=== PATIENT | male | born 1995 | race African-American/Black ===

== ENCOUNTER → 2018-09-23 12:26 | Outpatient (CLI) | payer OTHER, SELFPAY ==
[2018-09-17 15:51] VITALS: BMI 20.9
[2018-09-22 15:41] LABS: Basophil% 0.4 % (0-1); Eosinophils% 0.6 % (0-5); Hematocrit 45.9 % (40-54); Hemoglobin 15.2 g/dL (13.0-16.5); Lymphocyte % 50.8 % (19-41); Mean Corp Hgb Conc 33.1 g/dL (32-36); Mean Corpuscular Hgb 28.5 pg (27.0-32.0); Mean Corpuscular Volume 86.1 fL (80-94); Monocyte% 6.2 % (0-10); Neutrophil % 41.8 % (47-70); Platelet Count 194 K/mm3 (150-450); RBC Distribution Width CV 12.7 % (11.6-14.6); RBC Distribution Width SD 39.5 fl (35.1-43.9); Red Blood Count 5.33 M/mm3 (4.6-6.2); White Blood Count 4.7 K/mm3 (4.4-11.0)
[2018-09-22 15:42] LABS: Absolute Lymphocyte Count 2.36 X10^3/uL (0.83-4.51); Absolute Neutrophil Count 1.9 X10^3/uL (2.0-7.7); Anion Gap 8 (5-15); BUN 13 mg/dL (7-18); BUN/Creat Ratio 10.6 RATIO (10-20); Calcium,Total 9.1 mg/dL (8.5-10.1); Chloride 105 mmol/L (98-107); Creatinine, Serum 1.23 mg/dL (0.70-1.30); EST Glomerular Filtration Rate 79 mL/min (>60); Est Glom Filt Rate - Afr Amer 96 mL/min (>60); Glucose 85 mg/dL (74-106); NRBC Flagged by Analyzer 0 % (0-5); Sodium Level 141 mmol/L (136-145); Thyroid Stim Hormone (TSH) 1.41 uIU/mL (0.358-3.74)
--- NOTE | 2018-09-23 12:30 | ECHOD_ITS ---
Reason For Study: ARRHYTHMIA Procedure This was a 2D Doppler, Color Flow transthoracic echocardiogram. Exam performed in department. Left Ventricle Normal LV size. Left ventricular systolic function is normal. The estimated ejection fraction is 60 %. Normal diastology for age. No regional wall motion abnormalities noted. Right Ventricle Normal RV size. Normal systolic function. Atria Normal left atrium. Normal right atrium. Mitral Valve Normal mitral valve. Tricuspid Valve Normal tricuspid valve. Mild tricuspid valve insufficiency. Pulmonary artery systolic pressure is 23 mmHg. Aortic Valve Normal aortic valve. Trisinus/trileaflet aortic valve. Pulmonic Valve Normal pulmonic valve. Great Vessels Normal aortic root. The pulmonary artery is normal size. Normal inferior vena cava. Pericardium/Pleural No pericardial effusion. MMode/2D Measurements & Calculations LVIDd: 4.7 cm IVSd: 0.93 cm Ao root diam: 2.8 cm LVIDs: 3.2 cm LVPWd: 0.87 cm RVDd: 3.5 cm FS: 32.4 % LAV(MOD-bp): 52.7 ml LA A4 area: 18.3 cm2 LA dimension(2D): 3.1 cm LAV(MOD-bp) Indexed: 28.0 ml/m2 LAV(MOD-sp2): 50.2 ml LAV(MOD-sp4): 50.7 ml RA A4 area: 14.6 cm2 Time Measurements MV dec time: 0.21 sec Doppler Measurements & Calculations MV E max luís: 80.1 cm/sec Lat Peak E' Luís: 22.5 cm/sec Med Peak E' Luís: 10.9 cm/sec MV A max luís: 21.6 cm/sec E/E' lat: 3.6 E/E' med: 7.4 MV E/A: 3.7 Ao V2 max: 114.1 cm/sec LV V1 max: 90.3 cm/sec PA V2 max: 110.6 cm/sec Ao max P.2 mmHg LV V1 max P.3 mmHg PI dec slope: 41.1 cm/sec2 TR max luís: 213.3 cm/sec TR max P.2 mmHg Interpretation Summary Normal LV size. Left ventricular systolic function is normal. The estimated ejection fraction is 60 %. Mild tricuspid valve insufficiency. Normal diastology for age. Ordering Physician: Louis Jones Referring Physician: JOSUÉ PCP Performed By: Cristal Brennan RDCS, RVT
== END ==
PROVIDERS: Referring Provider Internal Medicine Cardiovascular Disease; Visit Provider Internal Medicine Cardiovascular Disease
DX: R00.2 Palpitations (principal)
CPT/HCPCS: 36415; 80048; 84443; 85025; 93306

== ENCOUNTER 2019-01-16 23:57 | Emergency (ER) | payer OTHER, SELFPAY ==
[2018-09-17 15:51] VITALS: BMI 20.9
[2019-01-16 23:58] VITALS: BP 127/49; PULSE 72; RESP 16; TEMP 36.9; O2SAT 100; BMI 23.3
--- NOTE | 2019-01-17 00:55 | ED.DCSUM_ITS ---
History of Present Illness Chief Complaint: Abd Pain Informant: Patient, Family Onset: Today Context: Gradual Onset - while riding in car Timing: Continuous Quality: sore Location: LUQ Current Severity: Mild Maximum Severity: Mild Worsened by: nothing Relieved by: nothing Associated Symptoms: see below Narrative: Patient has been ill for about 3 or 4 weeks with mono. He goes to school in [place], [place] and was seen there multiple times by multiple practitioners for this illness. Initially, he had a severe sore throat and it appeared he may have strep so he was swabbed and it was positive so he was placed on penicillin but he got no better. He did not develop a rash. Eventually, he had a positive Monospot and advised that he had mononucleosis. He had fevers. They resolved and he has been gradually feeling better. He now was brought home by his parents from college out of concern that he was not getting better. For the last for 5 days he has felt basically back to normal and wanting to go back to school. Today he developed a subjective low-grade fever, he felt dizzy when he stood up and describes it as both lightheadedness and spinning, but had no other associated symptoms with it such as nausea, hearing disturbance/tinnitus, earache, ear discharge, headache. He was not near syncopal or syncopal. He also developed left upper abdominal discomfort gradually while riding in a car a significant distance. He had hiccups recently and some mild soreness that was attributed to probable splenic swelling and he was advised to avoid any injuries or sports recently which he has done and he has had no injuries or falls. He denies any vomiting or diarrhea or other new symptoms. Past Medical History - Allergies and Home Meds Allergies/Adverse Reactions: Allergies pseudoephedrine [From Actifed] Allergy (Verified 01/17/19 00:02) hives triprolidine [From Actifed] Allergy (Verified 01/17/19 00:02) hives SUDFED Allergy (Mild, Uncoded 01/17/19 00:02) Hives Primary Care Physician: Doctor,Your [STAFF PHYSICIAN] - 1 Week if not improving Past Medical History: None Surgical History: no surgical history Lives: Roommate Smoking Status: Never smoker Drugs: None Review of Systems General: Reports: Fever, Subjective. Denies: Chills, Sweats Eyes: Denies: Visual changes - bilaterally, Diplopia ENT: Denies: Rhinorrhea, Sore throat Cardiovascular: Denies: Chest pain, Palpitations Respiratory: Denies: Dyspnea, Cough, Dyspnea on exertion Gastrointestinal: Reports: Abdominal pain. Denies: Nausea, Vomiting, Diarrhea, Melena, Hematochezia Genitourinary: Denies: Dysuria, Hematuria, Frequency Musculoskeletal: Denies: Neck pain, Back pain, Extremity Pain Skin: Denies: Rash, Wounds Neurological: Denies: Headache, Weakness, Numbness Physical Exam Vital Signs/Narrative: Vital Signs Temp Pulse Resp BP Pulse Ox 01/16/19 23:58 98.5 F 72 16 127/49 H 100 Inital Vital Signs reviewed: Yes General: Well nourished, Well developed, No Acute Distress Head: Normocephalic, Atraumatic Eyes: Perrl, EOMI ENT: Moist mucous membranes, No rhinorrhea, TM's clear, - - PO clear Neck: Supple, - - posterior cervical LAD only. Cardiovascular: Regular rate, Regular rhythm, No murmurs Respiratory: No distress, CTA bilaterally, Chest nontender Abdomen: Soft, Nondistended, Normal bowel sounds, No masses, Tender - mild LUQ. Negative for: Hepatomegaly, Splenomegaly Back: Nontender, Normal Inspection. Negative for: CVA tenderness Extremities: Nontender, No edema. Negative for: Calf Tenderness Skin: Normal color, No rash, No Trauma Neurological: Alert, Oriented x3, Cranial nerves II-XII grossly intact, Normal Strength, Normal Sensation, Normal Gait Psychological: Normal affect, Normal Mood Diagnostic/Tx/Re-eval - Medical Decision Making I suspect he is having abdominal discomfort due to splenic swelling related to mononucleosis. He has suffered no falls, injuries, abrupt severe symptoms to suggest splenic capsular rupture/hematoma. I do not think he needs acute imaging right now. I think his symptoms are all related to his mononucleosis, which can persist for a couple months very easily. His exam is otherwise normal and he is very well-appearing at this time with fairly normal vital signs. We discussed reasons to return and routine follow-up, and to avoid injuries especially to this area to avoid splenic rupture which he is at risk for if injured. He and family are comfortable with this plan, discussed at length. Supportive care advised at this time. ED Disposition - Plan for ED Patient: Disposition: Home or Assisted Living Diagnosis: LUQ abdominal pain, Mononucleosis, Lightheadedness Instructions: Mononucleosis Referrals: Doctor,Your [STAFF PHYSICIAN] - 1 Week if not improving
== END 2019-01-17 01:09 | disposition home or self-care (01) ==
PROVIDERS: Emergency Provider Emergency Medicine; Family Provider Family Medicine; PCP Family Medicine
DX: R10.12 Left upper quadrant pain (principal); B27.90 Infectious mononucleosis, unspecified without complication; R42 Dizziness and giddiness
CPT/HCPCS: 99282

== ENCOUNTER → 2023-07-31 | Outpatient (CLI) | payer OTHER, SELFPAY ==
[2023-07-31 17:41] LABS: Absolute Lymphocyte Count 2.07 X10^3/uL (0.83-4.51); Basophil# 0.01 X10^3/uL; Basophil% 0.2 % (0-1); Eosinophil# 0.04 X10^3/uL; Eosinophils% 0.9 % (0-5); Hematocrit 43.6 % (40-54); Hemoglobin 14.6 g/dL (13.0-16.5); Lymphocyte # 2.07 X10^3/ul (0.83-4.51); Lymphocyte % 46.4 % (19-41); Mean Corp Hgb Conc 33.5 g/dL (32-36); Mean Corpuscular Hgb 28.3 pg (27.0-32.0); Mean Corpuscular Volume 84.5 fL (80-94); Mean Platelet Vol. 9.8 fl (6.2-12.0); Monocyte% 6.7 % (0-10); NRBC Flagged by Analyzer 0 % (0-5); Neutrophil # 2.04 X10^3/uL (2.7-7.7); Neutrophil % 45.8 % (47-70); Platelet Count 221 K/mm3 (150-450); RBC Distribution Width CV 12.2 % (11.6-14.6); RBC Distribution Width SD 37.4 fl (35.1-43.9); Red Blood Count 5.16 M/mm3 (4.6-6.2); White Blood Count 4.5 K/mm3 (4.4-11.0)
[2023-07-31 18:13] LABS: ALB/GLOB Ratio 1.1 RATIO (0.9-2.4); AST(SGOT) 16 U/L (15-37); Alanine Aminotransfer ALT/SGPT 20 U/L (16-61); Albumin, Serum 4.2 g/dL (3.2-5.0); Alkaline Phosphatase 66 U/L (45-117); Anion Gap 6 (5-15); BUN 16 mg/dL (7-18); BUN/Creat Ratio 13.6 RATIO (10-20); Calcium,Total 9.2 mg/dL (8.5-10.1); Chloride 107 mmol/L (98-107); Cholesterol 177 mg/dL (200); Creatinine, Serum 1.18 mg/dL (0.70-1.30); EST Glomerular Filtration Rate 79 mL/min (>60); Est Glom Filt Rate - Afr Amer 96 mL/min (>60); Globulin 3.7 g/dL (2.2-4.2); Glucose 93 mg/dL (74-106); High Density Lipoprotein 57 mg/dL; Potassium 3.7 mmol/L (3.5-5.1); Protein, Total 7.9 g/dL (6.4-8.2); Sodium Level 138 mmol/L (136-145); Triglycerides 53 mg/dL; Very Low Density Lipoprotein 11 mg/dL (5-40)
== END | disposition home or self-care (01) ==
PROVIDERS: PCP Nurse Practitioner Family; Referring Provider Nurse Practitioner Family; Visit Provider Nurse Practitioner Family
DX: Z00.01 Encounter for general adult medical examination with abnormal findings (principal)
CPT/HCPCS: 36415; 80053; 80061; 85025

== ENCOUNTER 2025-02-03 20:17 | Emergency (ER) | payer SELFPAY ==
[2025-02-03 20:19] VITALS: BP 129/81; PULSE 116; RESP 20; TEMP 36.8; O2SAT 100; BMI 26.8
[2025-02-03 20:44] LABS: Hematocrit 45.0 % (40-54); Hemoglobin 15.2 g/dL (13.0-16.5); Immature Granulocytes Count 0.050 X10^3/uL (0.0-0.0); Mean Corp Hgb Conc 33.8 g/dL (32-36); Mean Corpuscular Volume 83.8 fL (80-94); Mean Platelet Vol. 9.7 fl (6.2-12.0); NRBC Flagged by Analyzer 0 % (0-5); POSITIVE DIFFERENTIAL YES; Platelet Count 202 K/mm3 (150-450); RBC Distribution Width CV 12.5 % (11.6-14.6); RBC Distribution Width SD 37.8 fl (35.1-43.9); Red Blood Count 5.37 M/mm3 (4.6-6.2); White Blood Count 9.8 K/mm3 (4.4-11.0)
[2025-02-03 20:46] VITALS: TEMP 37.7
[2025-02-03] MEDS: 0.9% Normal Saline (1000mL) 1,000 ML 999 ML IV (20:59)
[2025-02-03 21:26] VITALS: BP 105/58; BP 121/57; BP 128/63; PULSE 100; PULSE 106; PULSE 115
--- OUTSIDE RECORDS SUMMARY | 2025-02-03 21:37 | XMS RPT_ITS | CCD ---
Author Organization [facility] Inform ion Partnership [facility] Care Team Providers Care Water Registrar Name Role Phone JENNIFER PARKER Unavailable Unavailable Unavailable Primary Care Provider Unavailabl e SELF, SELF Referring Unavailable VERMANASIM Attending Unavailable Scott, Jonna Referring Unavailable Scott, Jonna Attending Unavailable Scott, Jonna Primary Care Unavailable Allergies Allergy Classification Reported Allergen(s) Allergy Type Date of Onset Reaction(s) Facility (2 sources) acetaminophen / HYDROcodone; Translations: [HYDROCODONE-ACETAM INOPHEN] Drug Allergy 05-07-19 14 [facility] Repository (2 sources) lactose; Translations: [LACTOSE] Drug Allergy 11-03-19 12 Nausea Only [facility] Repository (1 source) pseudoephedrine; Translations: [PSEUDOEPHEDRINE HCL] Drug Allergy 07-22-19 06 [facility] Repository (1 source) TRIPROLIDINE-PSEUDO EPHEDRINE; Translations: [TRIPROLIDINE-PSEUD OEPHEDRINE] Propensity to adverse reactions to drug (disorder) 07-22-19 06 [facility] Repository (1 source) Pseudoephedrine Drug Allergy 07-22-19 06 Dyspnea, Nausea and Vomiting, Nausea Only [facility] (1 source) Pseudoephedrine Drug Allergy 01-18-20 19 [facility] Repository (1 source) Triprolidine Drug Allergy 01-18-20 19 [facility] Repository Problems Problem Classification Problem Date Documented Da te Episodic/Chronic Other upper respiratory infections (3 sources) Upper respiratory infection; Translations: [Acute upper respiratory infection, unspecified] Onset: 01-13-2023 01-13-2023 Episodic Unclassified (1 source) Unknown / UNK(Unknown) Onset: 08-16-2017 Results Test Name Value Interpretation Reference Range Facil ity CBC W/Diff, Automatedon 07-19 Absolute Lymph 2.07 X10 3/uL Normal 0.83-4.51 [facility] Comment on above: Performed By: #### L 500.4100, L500.4050, L100.0100 #### [facility] [address] [place], [address] Absolute Neut 2.0 X10 3/uL Normal 2.0-7.7 [facility] Comment on above: Performed By: #### L 500.4100, L500.4050, L100.0100 #### [facility] [address] [place], [address] Basophils/100 WBC (Bld) 0.2 % Normal 0-1 [facility] Comment on above: Performed By: #### L 500.4100, L500.4050, L100.0100 #### [facility] [address] [place], [address] Eosinophils/100 WBC (Bld) 0.9 % Normal 0-5 [facility] Comment on above: Performed By: #### L 500.4100, L500.4050, L100.0100 #### [facility] [address] [place], [address] Erythrocyte distribution width (RBC) [Ratio] 12.2 % Normal 11.6-14.6 [facility] Comment on above: Performed By: #### L 500.4100, L500.4050, L100.0100 #### [facility] [address] [place], [address] Hematocrit (Bld) [Volume fraction] 43.6 % Normal 40-54 [facility] Comment on above: Performed By: #### L 500.4100, L500.4050, L100.0100 #### [facility] [address] [place], [address] Hemoglobin (Bld) [Mass/Vol] 14.6 g/dL Normal 13.0-16.5 [facility] Comment on above: Performed By: #### L 500.4100, L500.4050, L100.0100 #### [facility] [address] [place], [address] IG% 0.000 Normal 0.0-0.9 [facility] Comment on above: Result Comment: IG% - Immature Granulocytes (promyelocytes, myelocytes and metamyelocytes) > 1% indicates that a LEFT SHIFT is Present. Performed By: #### L 500.4100, L500.4050, L100.0100 #### [facility] [address] [place], [address] Lymphocytes/100 WBC (Bld) 46.4 % High 19-41 [facility] Comment on above: Performed By: #### L 500.4100, L500.4050, L100.0100 #### [facility] [address] [place], [address] MCH (RBC) [Entitic mass] 28.3 pg Normal 27.0-32.0 [facility] Comment on above: Performed By: #### L 500.4100, L500.4050, L100.0100 #### [facility] [address] [place], [address] MCHC (RBC) [Mass/Vol] 33.5 g/dL Normal 32-36 [facility] Comment on above: Performed By: #### L 500.4100, L500.4050, L100.0100 #### [facility] [address] [place], [address] MCV (RBC) [Entitic vol] 84.5 fL Normal 80-94 [facility] Comment on above: Performed By: #### L 500.4100, L500.4050, L100.0100 #### [facility] [address] [place], [address] Monocytes/100 WBC (Bld) 6.7 % Normal 0-10 [facility] Comment on above: Performed By: #### L 500.4100, L500.4050, L100.0100 #### [facility] [address] [place], [address] Neutrophils/100 WBC (Bld) 45.8 % Low 47-70 [facility] Comment on above: Performed By: #### L 500.4100, L500.4050, L100.0100 #### [facility] [address] [place], [address] Nucleated RBC (Bld) [#/Vol] 0 10*3/uL Normal 0-5 [facility] Comment on above: Performed By: #### L 500.4100, L500.4050, L100.0100 #### [facility] [address] [place], [address] Platelet mean volume (Bld) [Entitic vol] 9.8 fL Normal 6.2-12.0 [facility] Comment on above: Performed By: #### L 500.4100, L500.4050, L100.0100 #### [facility] [address] [place], [address] Platelets (Bld) [#/Vol] 221 10*3/uL Normal 150-450 [facility] Comment on above: Performed By: #### L 500.4100, L500.4050, L100.0100 #### [facility] [address] [place], [address] RBC (Bld) [#/Vol] 5.16 10*6/uL Normal 4.6-6.2 [facility] Comment on above: Performed By: #### L 500.4100, L500.4050, L100.0100 #### [facility] [address] [place], [address] RDW SD 37.4 fl Normal 35.1-43.9 [facility] Comment on above: Performed By: #### L 500.4100, L500.4050, L100.0100 #### [facility] [address] [place], [address] WBC (Bld) [#/Vol] 4.5 10*3/uL Normal 4.4-11.0 [facility] Comment on above: Performed By: #### L 500.4100, L500.4050, L100.0100 #### [facility] [address] [place], [address] Comprehensive Metabolic Prof [facility] 07-31-2023 Albumin [Mass/Vol] 4.2 g/dL Normal 3.2-5.0 [facility] Comment on above: Performed By: #### L 500.4100, L500.4050, L100.0100 #### [facility] [address] [place], [address] Albumin/Globulin [Mass ratio] 1.1 {ratio} Normal 0.9-2.4 [facility] Comment on above: Performed By: #### L 500.4100, L500.4050, L100.0100 #### [facility] [address] [place], [address] ALK P 66 U/L Normal 45-117 [facility] Comment on above: Performed By: #### L 500.4100, L500.4050, L100.0100 #### [facility] [address] [place], [address] ALT [Catalytic activity/Vol] 20 U/L Normal 16-61 [facility] Comment on above: Performed By: #### L 500.4100, L500.4050, L100.0100 #### [facility] [address] [place], [address] AST [Catalytic activity/Vol] 16 U/L Normal 15-37 [facility] Comment on above: Performed By: #### L 500.4100, L500.4050, L100.0100 #### [facility] [address] [place], [address] Bilirubin [Mass/Vol] 1.40 mg/dL High 0.20-1.00 [facility] Comment on above: Result Comment: For patients on eltrombopag therapy, use of Dimension Ona TBIL is not recommended. Performed By: #### L 500.4100, L500.4050, L100.0100 #### [facility] [address] [place], [address] BUN/CRE 13.6 RATIO Normal 10-20 [facility] Comment on above: Performed By: #### L 500.4100, L500.4050, L100.0100 #### [facility] [address] [place], [address] CA,Total 9.2 mg/dL Normal 8.5-10.1 [facility] Comment on above: Performed By: #### L 500.4100, L500.4050, L100.0100 #### [facility] [address] [place], [address] Chloride [Moles/Vol] 107 mmol/L Normal 98-107 [facility] Comment on above: Performed By: #### L 500.4100, L500.4050, L100.0100 #### [facility] [address] [place], [address] CO2 [Moles/Vol] 25.0 mmol/L Normal 21.0-32.0 [facility] Comment on above: Performed By: #### L 500.4100, L500.4050, L100.0100 #### [facility] [address] [place], [address] Creatinine [Mass/Vol] 1.18 mg/dL Normal 0.70-1.30 [facility] Comment on above: Result Comment: The validity of the calculated GFR GFRAA in patients over 70 years has not been determined. Clinical correlation is essential. Performed By: #### L 500.4100, L500.4050, L100.0100 #### [facility] [address] [place], [address] EST GFR - AA 96 mL/min Normal >60 [facility] Comment on above: Result Comment: Afri can Egyptian GFR Calc Performed By: #### L 500.4100, L500.4050, L100.0100 #### [facility] [address] [place], [address] GAP 6 Normal 5-15 [facility] Comment on above: Performed By: #### L 500.4100, L500.4050, L100.0100 #### [facility] [address] [place], [address] GFR/1.73 sq M.predicted among non-blacks MDRD (S/P/Bld) [Vol rate/Area] 79 mL/min/{1.73_m2} Normal >60 [facility] Comment on above: Result Comment: Non- GFR Calc Performed By: #### L 500.4100, L500.4050, L100.0100 #### [facility] [address] [place], [address] Globulin (S) [Mass/Vol] 3.7 g/dL Normal 2.2-4.2 [facility] Comment on above: Performed By: #### L 500.4100, L500.4050, L100.0100 #### [facility] [address] [place], [address] Glucose [Mass/Vol] 93 mg/dL Normal 74-106 [facility] Comment on above: Performed By: #### L 500.4100, L500.4050, L100.0100 #### [facility] [address] [place], [address] Potassium [Moles/Vol] 3.7 mmol/L Normal 3.5-5.1 [facility] Comment on above: Performed By: #### L 500.4100, L500.4050, L100.0100 #### [facility] [address] [place], [address] Sodium [Moles/Vol] 138 mmol/L Normal 136-145 [facility] Comment on above: Performed By: #### L 500.4100, L500.4050, L100.0100 #### [facility] [address] [place], [address] T PROT 7.9 g/dL Normal 6.4-8.2 [facility] Comment on above: Performed By: #### L 500.4100, L500.4050, L100.0100 #### [facility] [address] [place], [address] Urea nitrogen [Mass/Vol] 16 mg/dL Normal 7-18 [facility] Comment on above: Performed By: #### L 500.4100, L500.4050, L100.0100 #### [facility] [address] [place], [address] Lipid Profileon 07-31-2023 Cholesterol [Mass/Vol] 177 mg/dL Normal 200 [facility] Comment on above: Result Comment: <200 mg/dL Desirable 200-240 mg/dL Borderline >240 mg/dL High Risk Performed By: #### L 500.4100, L500.4050, L100.0100 #### [facility] [address] [place], [address] Cholesterol in HDL [Mass/Vol] 57 mg/dL Normal [facility] Comment on above: Result Comment: The drugs N-Acetylcysteine and Metamizole may falsely depress this assay. Reference Range HDL <40 mg/dL Low HDL Cholesterol HDL >or= 60 mg/dL High HDL Cholesterol Performed By: #### L 500.4100, L500.4050, L100.0100 #### [facility] [address] [place], [address] Cholesterol in LDL [Mass/Vol] 109 mg/dL Normal 0-130 [facility] Comment on above: Performed By: #### L 500.4100, L500.4050, L100.0100 #### [facility] [address] [place], [address] Cholesterol in VLDL [Mass/Vol] 11 mg/dL Normal 5-40 [facility] Comment on above: Performed By: #### L 500.4100, L500.4050, L100.0100 #### [facility] [address] [place], [address] Triglyceride [Mass/Vol] 53 mg/dL Normal [facility] Comment on above: Result Comment: The drugs N-Acetylcysteine and Metamizole may falsely depress this assay. Serum Triglycerides Reference Interval Normal <150 mg/dL Borderline high 150 - 199 mg/dL High 200 - 499 mg/dL Very High > or = 500 mg/dL Performed By: #### L 500.4100, L500.4050, L100.0100 #### [facility] [address] [place], [address] POCT SARS-COV-2 RAPIDOrdered By: Renée Graham on 01-13-2023 SARS-CoV-2 (COVID-19) RdRp gene ANAHI+probe Ql (Resp) Not detected NOT DETECTED, INCONCLUSIVE [facility] SARS-CoV-2 (COVID-19) RdRp g cesia ANAHI+probe Ql (Resp)Ordered By: Renée Graham on 01-13-2023 [facility] PROGRESSon 08-16-2017 PROGRESS HNO ID: [id number]: Sophie Wilks (Rt) Maria De Jesus Julien: (none)Author Type: TechnicianType: Progress NotesFiled: 08/16/2017 3:35 PMNote Text: Radiology Service Progress NotePATIENT NAME: Jordan LingMRN: [id number] OF SERVICE: August 16, 2017TIME: 3:34 PMPATIENT IDENTITY VERIFICATION COMPLETED USING TWO (2) METHODS: Patientconfirmed name verbally and Date of .PATIENT GENDER DATA: MalePATIENT RELEVANT IMPLANT DATA REVIEWED: Not ApplicableRADIOLOGY DEPARTMENT: General X-ray: Exam(s) Completed: Spine X-Ray(s):Lumbar AP / LAT / L5-S1 / FLEX-EXTPERIPHERAL IV DATA: Not applicableSIGNED BY: RT KiritJune 2017 3:34 PM Normal [facility] XR LUMBAR 4V AP/LAT/ FLEX/EX Ton 08-16-2017 XR LUMBAR 4V AP/LAT/ FLEX/EXT * * *Final Report* * *DATE OF EXAM: Aug 16 2017 3:34PM [id number] [id number] - XR LUMBAR 4V AP/LAT/ FLEX/EXT / REASON: back pain * * * * Physician Interpretation * * * * EXAM TITLE: XR LUMBAR 4V AP/LAT/ FLEX/EXTEXAM DATE/TIME: 08/16/2017 3:34 PMCOMPARISON: None.CLINICAL INDICATION/HISTORY: Back pain.TECHNIQUE: AP, lateral , lateral extension, lateral flexion and cone down lateral views of the lumbar spine are presented.FINDINGS:Ther e are five [id number] lumbar vertebra.No acute fracture or subluxations are noted.No change in alignment of the lumbar spine on lateral extension and lateral flexion views.L4 and L5 laminectomy versus congenital bony defect.Bony defect also noted in the thoracolumbar region.The disc spaces are well preserved.There is no significant osteophyte formation.IMPRESSION: No acute abnormalities noted in the lumbar spine.Tire Duster: PSCB Transcribe Date/Time: Aug 16 2017 5:01PDictated by : YVES COSTA MDThidick examination was interpreted and the report reviewed and electronically signed by: YVES COSTA MD on Aug 16 2017 5:04PM [id number] CN Normal [facility] Vital Signs Date Time Vital Sign Value Performing Clinician Faci lity 01-13-2023 10:54-0500 Body temperature 97 [degF] Nasim Wans [employer] Work Phone: [facility] 01-13-2023 10:54-0500 Diastolic blood pressure 71 mm[Hg] Nasim Verma [employer] Work Phone: [facility] 01-13-2023 10:54-0500 Heart rate 58 /min Nasim Wans [employer] Work Phone: [facility] 01-13-2023 10:54-0500 Respiratory rate 18 /min Nasim Verma [employer] Work Phone: [facility] 01-13-2023 10:54-0500 SaO2% (BldA) [Mass fraction] 99 % Nasim Verma [employer] Work Phone: [facility] 01-13-2023 10:54-0500 Systolic blood pressure 121 mm[Hg] Nasim Verma [employer] Work Phone: [facility] Encounters Encounter Date Encounter Type Care Provider Facility Start: 08-08-2023 Encounter for genera l adult medical examination with abnormal findings [facility] Start: 07-31-2023 End: 07-31-2023 ambulatory [facility] Facility:[facility] Start: 01-13-2023 ambulatory SELF SELF Facility:[facility] Start: 01-13-2023 End: 01-13-2023 Office outpatient new 30 minutes Nasim Verma [employer] Work Phone: [facility] Comment on above: Upper respiratory tr act infection, unspecified type (Primary Dx) Start: 08-16-2017 End: 08-16-2017 [facility] Procedures Date Procedure Procedure Detail Performing Clinician Start: 01-13-2023 Sars-cov-2 detection by dna/rna Nasim Verma [employer] Work Phone: Plan of Treatment Date Care Activity Detail Author Start: 10-19-2022 Influenza vaccination INFLUENZA VACC INE (#1) [facility] Start: 10-04-2018 Tetanus vaccination TETANUS [facility] Start: 2012 HIV screening HIV SCREENING DISCUSSION [facility] Start: 2008 Vaccination for cristina n papillomavirus HPV VACCINE ADOL (1 - Male 2-dose series) [facility] Start: 02-08-1998 COVID-19 VACCINE (#1) COVID-19 VACCI NE (#1) [facility] Start: 1997 Hepatitis C screening HEPATITI S C VIRUS SCREENING [facility] Immunizations Immunization Date Immunization Notes Care Provider Liz camargo 01-08-2003 influenza virus vaccine, unspecified formulation Nasim THOMPSON Work Phone: [facility] Payers Date Payer Category Payer Self-pay 2023 Unknown [id number] 2016 Unknown [facility] [employer] / [employer] [id number] 2016-Present [address] [place] [address] [id number] 2016 Unknown [id number] 1997 Unknown [id number] Unknown [id number] Social History Date Type Detail Facility Tobacco smoking stat [facility] Tobacco smoking consumption unknown [facility] Start: 1997 Sex Assigned At Not on file [facility] Gender identity Not on file [facility] History of Present illness Narrative 01-13-2023 DONNA Pop - 01/13/2023 10:40 AM EST Note Date & Type Note Facility 01-13-2023 History of Present illness Narrative [facility] CHIEF COMPLAINT Sore Throat (Pt presents with sore throat and sinus pain that started about 3 days ago.) HPI Jordan Ling is a 27 y.o. male who presents with complaints of sore throat, congestion, and sinus pain. The patient states onset was 3 days ago. He is not had any fever, and is unsure if he has had any chills because he states that it is cold outside so he is unsure if he was cold or if he is having chills from the illness. He is not had any significant cough. No vomiting, no diarrhea. He states that he has been exposed to family members that were children with upper respiratory symptoms but is unsure if they had any specific illness. He states he does get frequent sinus infections Family history is noncontributory. PAST MEDICAL HISTORY No past medical history on file. SURGICAL HISTORY Past Surgical History: Procedure Laterality Date APPENDECTOMY 2012 CURRENT MEDICATIONS No current outpatient medications on file. ALLERGIES Allergies Allergen Reactions Pseudoephedrine Dyspnea, Nausea and Vomiting and Nausea Only Hydrocodone-Acetaminophen Other Reaction(s): Other (see Comments), Other: See Comments pain in mouth pain in mouth pain in mouth Lactose Nausea Only FAMILY HISTORY History reviewed. No pertinent family history. SOCIAL HISTORY Social History Socioeconomic History Marital status: Single REVIEW OF SYSTEMS Please see the HPI for all pertinent positive and negatives. All other systems was performed and are negative unless otherwise stated above. PHYSICAL EXAM VITAL SIGNS: BP 121/71 Pulse 58 Temp 97 F (36.1 C) (Infrared) Resp 18 SpO2 99% Constitutional: No acute distress. Non-toxic appearance. Fully conversant. Nursing note reviewed. HENT: Atraumatic. Normocephalic. Phonation normal. Tympanic membranes are dull, no erythema or perforation. Mucosal edema and congestion noted. No pharyngeal edema or exudate. No soft palate fullness Neck: Normal range of motion. Supple. Eyes: Conjunctiva normal. No discharge. Respiratory: No respiratory distress. No rales. No ronchi. No wheezes. No stridor. Normal air movement. Patient able to talk in full sentences. Cardiovascular: slightly bradycardic rate and regular rhythm. No gallops. No rubs. Musculoskeletal: full AROM of extremities at baseline Integument: No erythema. No rash. No diaphoresis. No cyanosis. Neurologic: Alert & oriented x 3. Cranial nerves grossly intact. GCS 15. CLINIC COURSE, MEDICAL DECISION MAKING, PLAN OF CARE MEDICAL DECISION MAKING Differential diagnosis: Differentials: viral syndrome, COVID, strep pharyngitis, URI, flu. Based on history and exam, I do not have concerns for ICU NURSE, RPA, ludwigs, or meningitis. Breath sounds are clear, unlikely pneumonia. The patient is outside of the Tamiflu treatment window, influenza swab deferred. Centor criteria not significant for strep pharyngitis. Results for orders placed or performed in visit on 01/13/23 POCT SARS-COV-2 RAPID Result Value Ref Range SARS-COV-2 POC NOT DETECTED NOT DETECTED, INCONCLUSIVE The patient's COVID swab is negative. History and exam is consistent with a viral upper respiratory infection. Antibiotics will be deferred as I do not believe that this is a secondary bacterial sinusitis at this time. The patient is educated on appropriate iakj-vyw-agniipp symptom control and will monitor his symptoms closely with primary care. He feels comfortable with plan and is provided opportunity for question IMPRESSION: ICD-10-CM 1. Upper respiratory tract infection, unspecified type J06.9 POCT SARS-COV-2 RAPID Follow up with primary care doctor in 1-7 days. Go to the Emergency Department for persistent or worsening symptoms. Shared decision making: Discussed plan of care and follow up plan with patient, return precautions reviewed. THIS NOTE WAS GENERATED USING DICTATION SOFTWARE. PLEASE EXCUSE ANY INDIGO VAT TENDER CLOTH ERRORS. documented in this encounter [facility] Instructions 01-13-2023 Patient InstructionsAttachments Note Date & Type Note Facility 01-13-2023 Instructions DONNA Pop - 01/13/2023 10:40 AM EST Your swab for COVID is negative. Follow-up: Call as soon as possible for an appointment: Primary Care Physician: No primary care provider on file. None The following attachments cannot be sent through Care Everywhere.URI (Upper Respiratory Infection) (Azerbaijani)documented in this encounter [facility] Evaluation note Note Date & Type Note Facility Evaluation note Diagnosis Upper respiratory tract infection, unspecified type- Primary documented in this encounter [facility] Summary Purpose Family History No Family History Records FoundNo Family History Records FoundNo Family History Records Found Advance Directives No Advanced Directives Records FoundNo Advanced Directives Records FoundNo Advanced Directives Records Found Additional Source Comments (unrecognized sect ion and content) No Status Records FoundNo Status Records FoundNo Status Records Found INFORMATION SOURCE (unrecogn ized section and content) DATE CREATED AUTHOR 08/23/2017 [facility] DATE CREATED AUTHOR AUTHOR'S ORGANIZ ATION 01/13/2023 [facility] DATE CREATED AUTHOR AUTHOR'S ORGANIZ ATION 08/10/2023 [facility] Reason for Visit (unrecogniz ed section and content) Reason Comments Sore Throat Pt presents with sor e throat and sinus pain that started about 3 days ago. FOR RECORDS PERTAINING TO PATIENTS WHO ARE OR HAVE BEEN ENROLLED IN A CHEMICAL DEPENDENCY/SUBSTANCEABUSE PROGRAM, SOME INFORMATION MAY BE OMITTED. This clinical summary was aggregated from multiple sources. Caution should be exercised in using it in the provision of clinical care. This summary normalizes information from multiple sources, and as a consequence, information in this document may materially change the coding, format and clinical context of patient data. In addition, data may be omitted in some cases. CLINICAL DECISIONS SHOULD BE BASED ON THE PRIMARY CLINICAL RECORDS. [facility] [facility]. provides no warranty or guarantee of the accuracy or completeness of information in this document.
[2025-02-03] MEDS: 0.9% Normal Saline (1000mL) 1,000 ML 1000 ML IV (22:16)
[2025-02-03 22:18] VITALS: BP 94/58; PULSE 110; RESP 18; TEMP 37.9; O2SAT 100
--- NOTE | 2025-02-03 23:41 | EDS_ITS ---
HPI History of Present Illness Chief Complaint: Nausea/Vomiting Informant: patient Onset/Context/Timing Onset: Days (2 days) Context: Sudden Onset Timing: Continuous Quality: Fever 104.0 ?F, myalgias arthralgias, headache, nausea vomiting, nonproduct Location: Systemic viral illness due to influenza Current Severity: Severe Maximum Severity: Severe Worsened by: Presumed influenza A Relieved by: Nothing Associated Symptoms Associated Symptoms: Previously documented Narrative Narrative: Patient is a 29-year-old male. 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 He presents because of headache, myalgias, arthralgias with nonproductive cough. He also reports nausea and vomiting. He endorses thirst and dry mouth. He denies decreased urine output. He does endorse lightheadedness if he stands up or rises from sitting position rapidly. He states his pain is significant. He feels like he was hit by a truck. Patient was exposed to 2 friends who were diagnosed with influenza A this past weekend. He is on no medication. He has allergy to Sudafed. He denies joint swelling. He denies rash. He denies photophobia or neck stiffness. He denies ear pain or drainage. He denies rhinorrhea. Prior similar symptoms: No Recent Illness/Hospitalization: No [facility] Medical History (Updated 02/03/25 @ 23:[address] Titus Garcia MD) Chronic sinus infection Home Medications ?Medication ?Instructions ?Recorded ?Last Taken ?Type NK 02/03/25 Unknown History Allergy/AdvReac Type Severity Reaction Status Date / Time pseudoephedrine (From Allergy hives Verified 02/03/25 20:23 Actifed) triprolidine (From Actifed) Allergy hives Verified 02/03/25 20:23 Family History Father Heart disease HOCM Uncle Heart disease CHF Surgical History History of appendectomy Social History Smoking Status: Never smoker ROS ROS ED Constitutional Constitutional ED: Reports chills and fever(s); Denies subjective Eyes Eyes: Denies blurry vision, change in vision or diplopia ENT ENT ED: Reports sore throat; Denies ear pain or rhinorrhea Cardiovascular Cardiovascular: Denies chest pain, orthopnea, palpitations or paroxysmal nocturnal dyspnea Respiratory/Chest Respiratory/Chest: Reports cough and dyspnea; Denies dyspnea on exertion, orthopnea, paroxysmal nocturnal dyspnea or sputum Gastrointestinal Gastrointestinal: Reports abdominal pain, nausea and vomiting; Denies constipation, diarrhea or melena Genitourinary Genitourinary ED: Denies dysuria, hematuria or urinary frequency Musculoskeletal Musculoskeletal: Reports arthralgias and myalgias Integumentary Denies rash Neurologic Neurologic: Reports headache(s) and weakness; Denies paresthesias Endocrine Endocrinology: Reports cold intolerance and heat intolerance Hematologic/Lymphatic Hematologic/Lymphatic: Reports systems reviewed and no addt'l complaints, except as documented EXAM Physical Exam Const Vital Signs: 02/03/25 20:19 02/03/25 20:46 02/03/25 21:26 Temperature 98.2 F 100 F H Temperature Source Temporal Oral Pulse Rate 116 H Pulse Rate [Lying] 100 Pulse Rate [Sitting (for 1 minute prior to obtaining)] 106 H Pulse Rate [Standing (for 1 minute prior to obtaining)] 115 H Respiratory Rate 20 H Blood Pressure 129/81 H Blood Pressure [Lying] 121/57 H Blood Pressure [Sitting (for 1 minute prior to obtaining)] 128/63 H Blood Pressure [Standing (for 1 minute prior to obtaining)] 105/58 L Blood Pressure Mean 97 Blood Pressure Mean [Lying] 78 Blood Pressure Mean [Sitting (for 1 minute prior to obtaining)] 84 Blood Pressure Mean [Standing (for 1 minute prior to obtaining)] 73 Pulse Ox 100 Oxygen Delivery Method Room Air 02/03/25 22:18 Temperature 100.3 F H Temperature Source Oral Pulse Rate 110 H Pulse Rate [Lying] Pulse Rate [Sitting (for 1 minute prior to obtaining)] Pulse Rate [Standing (for 1 minute prior to obtaining)] Respiratory Rate 18 Blood Pressure 94/58 L Blood Pressure [Lying] Blood Pressure [Sitting (for 1 minute prior to obtaining)] Blood Pressure [Standing (for 1 minute prior to obtaining)] Blood Pressure Mean 70 Blood Pressure Mean [Lying] Blood Pressure Mean [Sitting (for 1 minute prior to obtaining)] Blood Pressure Mean [Standing (for 1 minute prior to obtaining)] Pulse Ox 100 Oxygen Delivery Method Room Air Positive well nourished and well developed Constitutional Narrative: Patient appears ill. He is tachycardic and has elevated temperature. General Appearance ED: well developed; Negative for pallor HEENT Reports dry mucous membranes HEENT Narrative: Head is atraumatic normocephalic. Ears normal. TMs normal. Nares patent with no discharge. Posterior pharynx not erythema or exudate. Mucosas dry. Mouth ED: Yes dry mucous membranes Mouth: dry mucous membranes Eyes PERRL and EOMs intact bilaterally General Eye ED: Negative for pale conjunctiva or scleral icterus Neck no lymphadenopathy, supple and no JVD Resp normal respiratory effort and clear to auscultation bilaterally Cardio regular rhythm, S1 normal heart sound, S2 normal heart sound and no murmurs Rate: tachycardic GI normal to inspection, nondistended, normoactive bowel sounds, non-tender, non- distended and no masses; Negative for hepatosplenomegaly Back/Spine no CVA tenderness Extremity normal to inspection General Extremety ED: Negative for edema or tenderness General Extremity: Negative for edema Neuro oriented x3 and CN's II-XII intact bilaterally Sensorium / Orientation: alert Motor Exam: strength 5/5 throughout Psych mental status grossly normal Skin no rashes or lesions noted, no wounds and No skin turgor normal General Skin Exam: elasticity normal; Negative for jaundice or pallor MDM MDM MDM Narrative Medical decision making narrative: Patient has systemic viral illness due to influenza A. His electrolyte panel was canceled. Clinically is dehydrated. He received 2 L of normal saline. Blood work was drawn per nurse protocol. Some of it was canceled because in my opinion is not indicated. Patient has influenza A since he has been exposed and has classic symptoms. History & Record Review Additional record(s) reviewed:: Prior ED visit (Last seen in the ER 2018 for left upper quadrant abdominal pain. He was seen in 2012 for right lower quadrant abdominal pain was admitted for appendicitis) Lab Data Attestation: I reviewed the patient's lab results. Lab results narrative: CBC is unremarkable. Labs: Laboratory Results - last 24 hr 02/03/25 20:30 WBC 9.8 RBC 5.37 Hgb 15.2 Hct 45.0 MCV 83.8 MCH 28.3 MCHC 33.8 RDW Std Deviation 37.8 RDW Coeff of Marco 12.5 Plt Count 202 MPV 9.7 Immature Gran % (Auto) 0.500 Neut % (Auto) 87.5 H Lymph % (Auto) 5.4 L Pratt % (Auto) 6.4 Eos % (Auto) 0.0 Baso % (Auto) 0.2 Absolute Neuts (auto) 8.6 H Absolute Lymphs (auto) 0.53 L Nucleated RBC % 0 Sodium Cancelled Potassium Cancelled Chloride Cancelled Carbon Dioxide Cancelled Anion Gap Cancelled BUN Cancelled Creatinine Cancelled Estim Creat Clear Calc Cancelled Est GFR (MDRD) Non-Af Cancelled BUN/Creatinine Ratio Cancelled Glucose Cancelled Calcium Cancelled Total Bilirubin Cancelled AST Cancelled ALT Cancelled Alkaline Phosphatase Cancelled Total Protein Cancelled Albumin Cancelled Globulin Cancelled Albumin/Globulin Ratio Cancelled Lipase Cancelled Treatment and Re-Evaluation :: Patient was reassessed at 2339. He feels better. He does have urge to urinate. He was discharged to home with appropriate home-going instructions. Discharge Plan Triage Chief Complaint: Nausea/Vomiting ED Provider: Titus Garcia Dx/Rx/DC Orders Clinical Impression: Influenza A, Sinus tachycardia seen on library monitor, Acute dehydration, Tachypnea, Nausea & vomiting, Fever in adult Instructions: ED Influenza (Adult) Prescriptions: No Action NK Stand Alone Forms: ED Work / School Excuse Primary Care Provider: Care Physician,No Primary Referrals: Care Physician,No Primary [Primary Care Provider, Medical] Katia Castañeda MD [[facility], [facility]] - 1 Week if not improving Print Language: Lithuanian Disposition Disposition: Home, Self Care
[2025-02-04 00:12] VITALS: BP 96/50; PULSE 107; RESP 15; TEMP 37.9; O2SAT 100
== END 2025-02-04 00:22 | disposition home or self-care (01) ==
PROVIDERS: Emergency Provider Emergency Medicine; Visit Provider Emergency Medicine
DX: J10.1 Influenza due to other identified influenza virus with other respiratory manifestations (principal); E86.0 Dehydration; R00.0 Tachycardia, unspecified; R06.82 Tachypnea, not elsewhere classified
CPT/HCPCS: 85025; 96361; 96374; 99283; A4216; J2405